=== PATIENT | female | born 1950 | race Caucasian/White ===

== ENCOUNTER 2018-03-15 16:21 | Outpatient (REF) | payer MEDICARE, SELFPAY ==
[2018-03-15 19:38] LABS: HCT 40.7 % (36.0-46.0); HGB 13.6 g/dL (12.0-15.5); Mean Corp. HGB Concentration 33.4 g/dL (32.0-36.0); Mean Corpuscular Hemoglobin 29.1 pg (27.0-33.0); Mean Platelet Volume 9.5 fL (8.0-11.0); Platelet Count 333 x1000/uL (130-400); RBC 4.68 m/cumm (4.00-5.20); White Blood Cell Count 5.36 k/cumm (4.4-10.8)
[2018-03-15 20:15] LABS: ALT 23 U/L (12-78); Anion Gap 6.5 mmol/L (3-11); BUN 14 mg/dL (7-18); CO2 29.5 mmol/L (21.0-32.0); Calcium 9.5 mg/dL (8.5-10.1); Chloride 104 mmol/L (98-107); Cholesterol 158 mg/dL (50-200); Glucose 83 mg/dL (70-100); HDL Cholesterol 50 mg/dL (40-60); LDL CHOLESTEROL 95 mg/dL (<100); Potassium 4.2 mmol/L (3.5-5.1); Sodium 140 mmol/L (136-145); Triglyceride 66 mg/dL (30-150); Vitamin B12 462 pg/mL (193-986)
[2018-03-15 21:04] LABS: Creatine Kinase 61 U/L (26-192)
== END 2018-03-15 16:41 ==
LOC: NCHCN 16:21
PROVIDERS: PCP Internal Medicine; Visit Provider Internal Medicine
DX: E78.5 Hyperlipidemia, unspecified (principal); E04.1 Nontoxic single thyroid nodule; E66.9 Obesity, unspecified
CPT/HCPCS: 80048; 80061; 82550; 83721; 85027; 82607; 84460

== ENCOUNTER 2019-03-20 18:44 | Outpatient (REF) | payer MEDICARE, SELFPAY ==
[2019-03-20 19:39] LABS: ALT 24 U/L (14-59); Anion Gap 6.7 mmol/L (3-11); BUN 14 mg/dL (7-18); CO2 30.3 mmol/L (21.0-32.0); CREATININE 0.79 mg/dL (0.55-1.02); Calcium 9.7 mg/dL (8.5-10.1); Chloride 105 mmol/L (98-107); Glucose 82 mg/dL (74-106); LDL CHOLESTEROL 84 mg/dL (<100); Sodium 142 mmol/L (136-145)
== END 2019-03-20 19:04 ==
LOC: NCHCN 18:44
PROVIDERS: PCP Internal Medicine; Visit Provider Internal Medicine
DX: E04.1 Nontoxic single thyroid nodule (principal); E78.5 Hyperlipidemia, unspecified; E66.9 Obesity, unspecified
CPT/HCPCS: 80048; 83721; 84443; 84460

== ENCOUNTER 2020-03-29 16:43 | Outpatient (REF) | payer MEDICARE, SELFPAY ==
[2020-03-29 20:02] LABS: ALT 20 U/L (14-59); Anion Gap 7.7 mmol/L (3-11); BUN 17 mg/dL (7-18); CO2 26.3 mmol/L (21.0-32.0); CREATININE 0.96 mg/dL (0.55-1.02); Calcium 9.1 mg/dL (8.5-10.1); Chloride 106 mmol/L (98-107); Glucose 95 mg/dL (74-106); LDL CHOLESTEROL 84 mg/dL (<100); Magnesium 2.3 mg/dL (1.8-2.4); Potassium 3.9 mmol/L (3.5-5.1); Sodium 140 mmol/L (136-145)
== END 2020-03-29 17:03 ==
LOC: NCHCN 16:43
PROVIDERS: PCP Internal Medicine; Visit Provider Internal Medicine
DX: E66.9 Obesity, unspecified (principal); K21.9 Gastro-esophageal reflux disease without esophagitis; M54.5 Low back pain; M70.61 Trochanteric bursitis, right hip
CPT/HCPCS: 80048; 83721; 83735; 84460

== ENCOUNTER 2021-04-04 18:17 | Outpatient (REF) | payer MEDICARE, SELFPAY ==
[2021-04-04 19:56] LABS: Anion Gap 10.6 mmol/L (3-11); BUN 9 mg/dL (7-18); CO2 26.4 mmol/L (21.0-32.0); CREATININE 0.8 mg/dL (0.55-1.02); Calcium 9.4 mg/dL (8.5-10.1); Calculated LDL 87 mg/dL (<100); Chloride 103 mmol/L (98-107); Cholesterol 155 mg/dL (<200); Glucose 83 mg/dL (74-106); HDL Cholesterol 51 mg/dL (40-60); Potassium 4.3 mmol/L (3.5-5.1); Sodium 140 mmol/L (136-145); TSH 2.69 uIU/mL (0.36-3.74); Triglyceride 88 mg/dL (<150)
== END 2021-04-04 18:18 | disposition home or self-care (01) ==
LOC: NCHCN 18:17
PROVIDERS: PCP Internal Medicine; Visit Provider Internal Medicine
DX: E04.1 Nontoxic single thyroid nodule (principal); E04.2 Nontoxic multinodular goiter; Z00.00 Encounter for general adult medical examination without abnormal findings
CPT/HCPCS: 80048; 80061; 84443

== ENCOUNTER 2021-10-27 14:21 | Outpatient (REF) | payer MEDICARE, SELFPAY | END 2021-10-27 14:22 | disposition home or self-care (01) | LOC: NCHCN 14:21 | PROVIDERS: PCP Internal Medicine; Visit Provider Internal Medicine | DX: N39.0 Urinary tract infection, site not specified (principal) | CPT/HCPCS: 87077; 87086; 87186 ==

== ENCOUNTER 2022-04-17 19:02 | Outpatient (REF) | payer MEDICARE, SELFPAY ==
[2022-04-17 19:49] LABS: Anion Gap 7.8 mmol/L (3-11); BUN 12 mg/dL (7-18); CO2 28.2 mmol/L (21.0-32.0); CREATININE 0.7 mg/dL (0.55-1.02); Calcium 9.5 mg/dL (8.5-10.1); Calculated LDL 92 mg/dL (<100); Chloride 103 mmol/L (98-107); Cholesterol 163 mg/dL (<200); Estimated GFR 92.98 (mL/min/1.73m2); Glucose 86 mg/dL (74-106); HDL Cholesterol 49 mg/dL (40-60); Potassium 3.7 mmol/L (3.5-5.1); Sodium 139 mmol/L (136-145); Triglyceride 111 mg/dL (<150)
== END 2022-04-17 19:03 | disposition home or self-care (01) ==
LOC: NCHCN 19:02
PROVIDERS: PCP Internal Medicine; Visit Provider Internal Medicine
DX: E78.5 Hyperlipidemia, unspecified (principal); I10 Essential (primary) hypertension
CPT/HCPCS: 80048; 80061

== ENCOUNTER 2023-04-19 14:22 | Outpatient (REF) | payer MEDICARE, MEDICAID, SELFPAY ==
[2023-04-19 19:00] LABS: Anion Gap 4.2 mmol/L (3-11); BUN 10 mg/dL (7-18); CO2 30.8 mmol/L (21.0-32.0); CREATININE 0.7 mg/dL (0.55-1.02); Calcium 9.7 mg/dL (8.5-10.1); Calculated LDL 72 mg/dL (<100); Chloride 105 mmol/L (98-107); Cholesterol 129 mg/dL (<200); Estimated GFR 92.41 (mL/min/1.73m2); Glucose 90 mg/dL (74-106); HDL Cholesterol 49 mg/dL (40-60); Potassium 4.5 mmol/L (3.5-5.1); Sodium 140 mmol/L (136-145); Triglyceride 44 mg/dL (<150)
[2023-04-19 19:09] LABS: Hemoglobin A1C 5.2 % (<5.7)
== END 2023-04-19 14:23 | disposition home or self-care (01) ==
LOC: NCHCN 14:22
PROVIDERS: PCP Internal Medicine; Visit Provider Internal Medicine
DX: E66.9 Obesity, unspecified (principal)
CPT/HCPCS: 80048; 80061; 83036

== ENCOUNTER 2024-03-28 13:18 | Outpatient (REF) | payer OTHER, MEDICAID, SELFPAY ==
[2024-03-28 19:07] LABS: Hemoglobin A1C 5.4 % (<5.7)
[2024-03-28 19:16] LABS: ALT 23 U/L (14-59); Anion Gap 3.7 mmol/L (3-11); BUN 12 mg/dL (7-18); CO2 31.3 mmol/L (21.0-32.0); CREATININE 0.9 mg/dL (0.55-1.02); Calcium 9.4 mg/dL (8.5-10.1); Chloride 107 mmol/L (98-107); Creatine Kinase 51 U/L (26-192); Estimated GFR 67.92 (mL/min/1.73m2); Glucose 91 mg/dL (74-106); Potassium 4.7 mmol/L (3.5-5.1); Sodium 142 mmol/L (136-145)
[2024-03-28 19:38] LABS: Calculated LDL 81 mg/dL (<100); Cholesterol 147 mg/dL (<200); HDL Cholesterol 53 mg/dL (40-60); Triglyceride 65 mg/dL (<150)
== END 2024-03-28 13:19 | disposition home or self-care (01) ==
LOC: NCHCN 13:18
PROVIDERS: PCP Internal Medicine; Visit Provider Internal Medicine
DX: E78.5 Hyperlipidemia, unspecified (principal); E04.2 Nontoxic multinodular goiter
CPT/HCPCS: 80048; 80061; 82550; 83036; 84443; 84460

== ENCOUNTER 2025-03-04 15:38 | Outpatient (REF) | payer MEDICARE, SELFPAY ==
[2025-03-04 21:16] LABS: HCT 40.1 % (36.0-46.0); HGB 13.5 g/dL (11.2-15.7); MCH 29.3 pg (27.0-33.0); MCHC 33.7 % (32.0-36.0); MCV 87 fL (80-95); MPV 9.2 fL (8.0-11.0); Platelet Count 313 10^3/uL (130-400); RBC 4.60 10^6/uL (3.93-5.22); RDW 13.6 % (11.7-14.6); RDW-SD 43.4 fL; WBC 6.33 10^3/uL (4.4-10.8)
[2025-03-04 21:37] LABS: ALT 27 U/L (14-59); AST 13 U/L (15-37); Albumin 4.0 g/dL (3.4-5.0); Alkaline Phosphatase 25 U/L (46-116); Anion Gap 7.4 mmol/L (3-11); BUN 12 mg/dL (7-18); Bilirubin, Total 0.3 mg/dL (0.2-1.0); CO2 28.6 mmol/L (21.0-32.0); Calcium 9.4 mg/dL (8.5-10.1); Chloride 103 mmol/L (98-107); Cholesterol 138 mg/dL (<200); Glucose 89 mg/dL (74-106); HDL Cholesterol 43 mg/dL (>or=50); Potassium 4.4 mmol/L (3.5-5.1); Sodium 139 mmol/L (136-145); TSH (W/Ref FT4) 2.09 uIU/mL (0.36-3.74); Total Protein 7.3 g/dL (6.4-8.2)
[2025-03-04 21:52] LABS: Hemoglobin A1C 5.4 % (<5.7)
== END 2025-03-04 15:39 | disposition home or self-care (01) ==
LOC: NCHCN 15:38
PROVIDERS: PCP Internal Medicine; Visit Provider Physician Assistant
DX: E78.5 Hyperlipidemia, unspecified (principal); E04.2 Nontoxic multinodular goiter; Z83.3 Family history of diabetes mellitus; Z83.2 Family history of diseases of the blood and blood-forming organs and certain disorders involving the immune mechanism
CPT/HCPCS: 80053; 80061; 85027; 83036; 84443